=== PATIENT | female | born 1995 | race Caucasian/White ===

== ENCOUNTER 2021-03-13 21:49 | Emergency (ER) | payer SELFPAY ==
[~2021-03-13] VITALS: Ht 172.7 cm; Wt 49.9 kg
[2021-03-13] MEDS ORDERED: PRED2.5T PO (22:35)
[2021-03-13] MEDS ORDERED: PRED20TA PO (22:35)
[2021-03-13 22:42] LABS: *URINE HCG, QUAL NEGATIVE (NEGATIVE)
--- NOTE | 2021-03-13 22:52 | NUR ---
Patient discharged to home in stable condition. Written and verbal after care instructions given. Patient verbalizes understanding of instructions. Stressed follow up or return to ER for worsening s/s. Patient ambulated with steady gait. All belongings returned to patient prior to departure.
[2021-03-13 23:10] VITALS: BP 128/83
== END 2021-03-13 22:52 | disposition home or self-care (01) ==
LOC: ER 21:50
DX: G56.03 Carpal tunnel syndrome, bilateral upper limbs (principal)
CPT/HCPCS: 84703; A4663

== ENCOUNTER 2021-09-14 16:41 | Emergency (ER) | payer OTHER ==
[~2021-09-14] VITALS: Ht 172.7 cm; Wt 49.9 kg
[~2021-09-14 16:41] MED LIST: PRED2.5T PO; PRED20TA PO
[2021-09-14] MEDS ORDERED: SPIRONOLACTONE (17:07)
[2021-09-14] MEDS ORDERED: TRAZODONE (17:07)
[2021-09-14] MEDS ORDERED: HYDROCODONE/APAP 5-325MG TABLET ONE (17:56)
[2021-09-14] MEDS ORDERED: ONDANSETRON ODT 4 MG TAB.RAPDIS ONE (18:00)
[2021-09-14] MEDS ORDERED: NEOMY/BACITRA/POLYMYXIN B OINT UD PACKET TP ONE ×2 (18:00)
[2021-09-14] MEDS ORDERED: HYDROCODONE/APAP 5-325MG TABLET PO ONE (18:00)
[2021-09-14] MEDS ORDERED: ONDANSETRON ODT 4 MG TAB.RAPDIS SL ONE (18:00)
[2021-09-14] MEDS ORDERED: OXYC5TAB3 PO (18:26)
[2021-09-14] MEDS ORDERED: NAPR-1009 PO (18:26)
[2021-09-14] MEDS ORDERED: LORAZEPAM 0.5 MG TABLET PO ONE ×2 (18:30→18:45)
[2021-09-14] MEDS ORDERED: LORAZEPAM 1 MG TABLET ONE (18:41)
--- NOTE | 2021-09-14 18:43 | NUR ---
PT WAS EVALUATED BY DR SKINNER. PT WAS D/C'd TO HOME. D/C INSTRUCTIONS GIVEN TO THE PT BY DR SKINNER.
[2021-09-14 18:44] VITALS: BP 131/69
== END 2021-09-14 18:45 | disposition home or self-care (01) ==
LOC: ER 16:43
DX: S82.832A Other fracture of upper and lower end of left fibula, initial encounter for closed fracture (principal); S90.512A Abrasion, left ankle, initial encounter; W18.40XA Slipping, tripping and stumbling without falling, unspecified, initial encounter; Y92.89 Other specified places as the place of occurrence of the external cause
CPT/HCPCS: 73610; A4663; Q0162